=== PATIENT | female | born 1975 | race Asian ===

== ENCOUNTER → 2025-01-30 11:21 | Outpatient (REF) | payer OTHER, SELFPAY | LOC: PAVMRI 11:21 | PROVIDERS: ATTENDING PHYSICIAN Physician Assistant Surgical; FAMILY PHYSICIAN Internal Medicine | DX: M54.50 Low back pain, unspecified (principal); M54.16 Radiculopathy, lumbar region; M54.2 Cervicalgia; M54.12 Radiculopathy, cervical region; M53.3 Sacrococcygeal disorders, not elsewhere classified | CPT/HCPCS: 72148 ==